=== PATIENT | female | born 2000 ===

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

== ENCOUNTER 2018-03-09 19:12 | Emergency (ER) | payer MEDICAID ==
[2018-03-09 19:39] VITALS: BMI 31.8
[2018-03-09 20:05] LABS: SQUAMOUS EPITHIAL 34 /hpf (0-5); URINE BACTERIA RARE (<OCC); URINE BILIRUBIN NEGATIVE (NEGATIVE); URINE BLOOD NEGATIVE (NEGATIVE); URINE CALCIUM OXALATE CRYSTALS MOD /hpf (<OCC); URINE CLARITY Hazy (Clear); URINE COLOR Yellow (YELLOW); URINE GLUCOSE (UA) NORMAL (Normal); URINE LEUKOCYTE ESTERASE 2+ Leu/uL (Negative); URINE PROTEIN NEGATIVE (NEGATIVE)
--- NOTE | 2018-03-09 21:00 | OBHP ---
Datetime: 03/09/2018 20:50 IP Adm Impression: , intrauterine ; Intact Membranes IP Admit Plan: Observation/Evaluation Admit Comment, IP Provider: 17 yo female G1 with an IUP at 21.6 weeks and presented with c/o of supr apubic pain with some constipation. Admits to + FM and denies LOF, VB or VD. Pt admits to deinkinf li ttle to no water PMHx and PSHx; Negative Meds PNV NKDA Social Hx Denies x 3 A/P: Young primigravida female + FHT"S and reassuring for GA. No uterine activity recorded or palpated Dysuria and constipation UA with Dehydration and + WBC's, most likely UTI Macrobid given x 1 and Rx to complte a 7 days course Advised to increase po water intake Will follow up in Clinic in 7-10 days or prn Pelvic Type - PN: Adequate Extremities - PN: Normal Abdomen - PN: Normal Back - PN: Normal Breast - PN: Not Done Lungs - PN: Normal Heart - PN: Normal Thyroid - PN: Normal Neurologic - PN: Normal HEENT - PN: Normal General - PN: Normal Presentation-Admit: Vertex FHR - Baseline A Provider: 140 Membranes, Provider: Intact Gestation - Est Wks by US: 21.6 EGA AdmitDate IP: 21.6 Vital Signs Provider: Reviewed IP Chief Complaint: Signs/symptoms UTI; Maternal discomfort Dilatation, Provider: NI Genitourinary Exam: Normal DTRs - PN: Normal
--- NOTE | 2018-03-09 21:03 | OBDCSUM ---
Datetime: 03/09/2018 20:56 Discharged to, Provider: Home Follow up at, Provider: [facility] Disch Instr Activity: Normal activity Disch Instr Diet: Regular Discharge Instructions, Provider: Routine instructions given Discharge Time: 03/09/2018 20:56 Follow up in weeks, Provider: in 7-10 days Disch Referrals: None Disch Activity Restrictions: No exercising; No sexual activity; Nothing in vagina - [place], myers vladislav [place]ill[place] Discharge Comment, Provider: 17 yo female G1 with an IUP at 21.6 weeks and presented with c/o of sup rapubic pain with some constipation. Admits to + FM and denies LOF, VB or VD. Pt admits to deinkinf l ittle to no water PMHx and PSHx; Negative Meds PNV NKDA Social Hx Denies x 3 A/P: Young primigravida female + FHT"S and reassuring for GA. No uterine activity recorded or palpated Dysuria and constipation UA with Dehydration and + WBC's, most likely UTI Macrobid given x 1 and Rx to complete a 7 days course Advised to increase po water intake and fiber in diet Will follow up in Clinic in 7-10 days or prn D/C home in Stable and Satisfactory condition Discharge Diagnosis Prov Other: at 21.6 weeks UTI Dehydration Not in labor Contraception after Delivery: Undecided
[2018-03-10 01:44] VITALS: BP 103/47; PULSE 76; RESP 20; TEMP 99.1; O2SAT 99
== END 2018-03-09 21:07 | disposition home or self-care (01) ==
LOC: C.EROB 19:12
DX: O23.42 Unspecified infection of urinary tract in pregnancy, second trimester (principal); E86.0 Dehydration; Z3A.21 21 weeks gestation of pregnancy

== ENCOUNTER 2018-05-15 10:57 | Emergency (ER) | payer MEDICAID ==
[2018-05-15 11:23] VITALS: BMI 32.1
[2018-05-15] MEDS ORDERED: Sodium Chloride 0.9% 1,000 ML IV ONE (11:37)
[2018-05-15 12:22] LABS: SQUAMOUS EPITHIAL 26 /hpf (0-5); URINE BACTERIA RARE (<OCC); URINE BILIRUBIN NEGATIVE (NEGATIVE); URINE BLOOD NEGATIVE (NEGATIVE); URINE CLARITY Hazy (Clear); URINE COLOR Yellow (YELLOW); URINE GLUCOSE (UA) NORMAL (Normal); URINE LEUKOCYTE ESTERASE 3+ Leu/uL (Negative); URINE PROTEIN NEGATIVE (NEGATIVE); URINE UROBILINOGEN NORMAL mg/dL (0.2-1.0)
--- NOTE | 2018-05-15 13:21 | OBHP ---
Datetime: 05/15/2018 11:48 IP Chief Complaint Other: nausea and vomiting IP Admit Plan Other: IV fluid resuscitation Admit Comment, IP Provider: 17 yo at 31+3 wks with N/V - primagravida - N/V - IV fluids - negative ketones - Flu swab negative - likely gastroenteritis - increase po hydration, tylenol for fever and pain, return to hospital for labor precautions - d/c home Abdomen - PN: Normal General - PN: Normal FHR - Baseline A Provider: 140 Contraction Comments Provider: irritability Vital Signs Provider: Reviewed NICHD Variability Prov Fetus A: Moderate 6-25bpm NICHD Accel Fetus A IP Provider: 15X15 FHR Category Provider Fetus A: Category I NICHD Decel Fetus A IP Provider: None Dilatation, Provider: ft Effacement, Provider: l Station, Provider: -3 Genitourinary Exam: Normal Datetime: 03/09/2018 20:50 EGA AdmitDate IP: 21.6
[2018-05-15 20:40] VITALS: BP 110/49; PULSE 87; RESP 18; TEMP 99.3; O2SAT 100
== END 2018-05-15 13:45 | disposition home or self-care (01) ==
LOC: C.EROB 10:57
DX: O21.2 Late vomiting of pregnancy (principal); Z3A.31 31 weeks gestation of pregnancy
CPT/HCPCS: 81001; 82948; 87804; 99283; J7030

== ENCOUNTER 2018-05-16 04:42 | Emergency (ER) | payer MEDICAID ==
[2018-05-16 04:42] VITALS: BMI 32.1
[2018-05-16 05:01] VITALS: O2SAT 100
--- NOTE | 2018-05-16 05:20 | C.PDOC ---
History Of Present Illness 17 year old female, 31 weeks , presents to the ED c/o exacerbation of her migraine headache for the past 2 days. Patient described her headache as frontal associated with vomiting and photophobia. Patient states she took Tylenol with no relief to her symptoms. Patient was sent from L&D for evaluation. Patient denies fever, chills, back pain, visual changes, dizziness, vaginal bleeding, vaginal discharge, hematuria, rash, weakness, numbness. Time Seen by Provider: 05/16/18 05:11 Chief Complaint (Nursing): GI Problem History Per: Patient History/Exam Limitations: no limitations Onset/Duration Of Symptoms: Days (2) Current Symptoms Are (Timing): Still Present Quality Of Discomfort: "Pain" Associated Symptoms: Nausea, Vomiting. denies: Diarrhea, Loss Of Appetite, Urinary Symptoms Alleviating Factors: None Recent travel outside of the [place]: No Additional History Per: Patient Abnormal Vaginal Bleeding: No Last Menstral Period: 10/07/17 Past Medical History Reviewed: Historical Data, Nursing Documentation, Vital Signs Vital Signs: Last Vital Signs Temp 98.1 F 05/16/18 04:52 Pulse 88 05/16/18 04:52 Resp 22 05/16/18 04:52 BP 105/69 05/16/18 04:52 Pulse Ox 100 05/16/18 04:52 - Medical History PMH: Migraine Surgical History: No Surg Hx Family History: States: Unknown Family Hx - Social History Hx Alcohol Use: No Hx Substance Use: No - Immunization History Hx Tetanus Toxoid Vaccination: No Hx Influenza Vaccination: No Hx Pneumococcal Vaccination: No Review Of Systems Constitutional: Negative for: Fever, Chills Eyes: Negative for: Vision Change Cardiovascular: Negative for: Chest Pain, Palpitations Respiratory: Negative for: Shortness of Breath Gastrointestinal: Positive for: Nausea, Vomiting. Negative for: Abdominal Pain Genitourinary: Negative for: Dysuria, Hematuria, Vaginal Discharge, Vaginal Bleeding Musculoskeletal: Negative for: Back Pain Skin: Negative for: Rash Neurological: Positive for: Headache. Negative for: Weakness, Numbness, Dizziness Physical Exam - Physical Exam Appears: Non-toxic, No Acute Distress Skin: Normal Color, Warm, Dry Head: Atraumatic, Normacephalic Eye(s): bilateral: Normal Inspection, PERRL, EOMI Oral Mucosa: Moist Neck: Normal ROM, No Midline Cervical Tenderness, Supple Chest: Symmetrical Cardiovascular: Rhythm Regular Respiratory: Normal Breath Sounds, No Wheezing Gastrointestinal/Abdominal: Soft, No Tenderness, No Guarding, No Rebound, Other (Gravid) Back: No CVA Tenderness Extremity: Normal ROM, No Tenderness, No Calf Tenderness, No Swelling Neurological/Psych: Oriented x3, Normal Speech, Normal Cognition, Normal Motor, Normal Sensation Gait: Steady ED Course And Treatment O2 Sat by Pulse Oximetry: 100 (ON RA) Pulse Ox Interpretation: Normal Progress Note: Plan: - Reglan 10 mg IV. - IV fluids. On reassessment, patient is resting comfortably, is tolerating PO, and pain has improved. Patient has no neurologic deficit, photophobia, rash, fever, or nuchal rigidity. Patient with stable vitals and was instructed to follow up with physician/clinic in 1-2 days. Pt is referred to L&D for NST Reevaluation Time: 06:10 Reassessment Condition: Improved Disposition - Disposition Referrals: [facility] [Outside] Disposition Time: 06:16 Condition: STABLE Additional Instructions: Please follow up with PMD/ FLARE MAN ( Sigue con lucas doctor en clinica) Take fluids ( Ping liquido) Ping las medicinas Regresa si peor Prescriptions: Metoclopramide [Reglan] 1 tab PO TID PRN #10 tab PRN Reason: Nausea/Vomiting Instructions: Migraine Headache (DC) Forms: [employer] (Georgian) - Clinical Impression Clinical Impression: Headache, Migraine, - PA / SHOE CLERK / Resident Statement MD/DO has reviewed & agrees with the documentation as recorded. - Scribe Statement The provider has reviewed the documentation as recorded by the Scribe Pj Sutton All medical record entries made by the Scribe were at my direction and personally dictated by me. I have reviewed the chart and agree that the record accurately reflects my personal performance of the history, physical exam, medical decision making, and the department course for this patient. I have also personally directed, reviewed, and agree with the discharge instructions and disposition.
[2018-05-16] MEDS ORDERED: Sodium Chloride 0.9% 500 ML IV ONE ×2 (05:21→05:33)
[2018-05-16 06:32] VITALS: BP 92/56; PULSE 76; RESP 18; TEMP 98
== END 2018-05-16 06:37 | disposition home or self-care (01) ==
LOC: C.ER 04:42
DX: O26.893 Other specified pregnancy related conditions, third trimester (principal); G43.909 Migraine, unspecified, not intractable, without status migrainosus; Z3A.31 31 weeks gestation of pregnancy
CPT/HCPCS: 96374; 99284; J2765; J7040

== ENCOUNTER 2018-07-11 13:50 | Emergency (ER) | payer MEDICAID, OTHER ==
[2018-07-11 15:01] VITALS: BMI 34.3
[2018-07-11 15:26] LABS: SQUAMOUS EPITHIAL 15 /hpf (0-5); URINE BILIRUBIN NEGATIVE (NEGATIVE); URINE BLOOD NEGATIVE (NEGATIVE); URINE CALCIUM OXALATE CRYSTALS OCC /hpf (<OCC); URINE CLARITY Hazy (Clear); URINE COLOR Yellow (YELLOW); URINE GLUCOSE (UA) NORMAL (Normal); URINE LEUKOCYTE ESTERASE 2+ Leu/uL (Negative); URINE PROTEIN 1+ mg/dL (NEGATIVE); URINE UROBILINOGEN NORMAL mg/dL (0.2-1.0)
--- NOTE | 2018-07-11 17:03 | US ---
Date of service: 07/11/2018 Ultrasound biophysical profile Indication: Decreased Movement Technique: Grayscale, color flow, and M-mode sonographic images of the single live intrauterine were obtained. Comparison: Pelvic ultrasound performed 06/25/17 Findings: There is a single live intrauterine gestation. The fetus is in cephalic position. The placenta is anterior. There is no evidence of previa. There is a normal amount of amniotic fluid. The MILTON measures 15.9 cm. M-mode imaging demonstrates a heart rate to be 129.2 beats per min. movements 2/2 breathing 2/2 tone 2/2 Amniotic fluid 2/2 Total score impression: 12/08 The study was performed for the emergent evaluation of decreased movement, and the whole anatomic survey of the fetus was not performed. Incidental note is made of testicular hydrocele. Impression: Biophysical profile of 8 out of 8. Single live intrauterine in cephalic position with a heart rate of 129.2 beats per min. The study was performed for the emergent evaluation of decreased movement, and the whole anatomic survey of the fetus was not performed. Incidental note is made of testicular hydrocele. Recommend follow-up consultation with Maternal specialist.
[2018-07-11 22:53] VITALS: BP 112/74; PULSE 74; RESP 18; TEMP 98.9
== END 2018-07-11 18:33 | disposition home or self-care (01) ==
LOC: C.EROB 13:50
DX: O46.93 Antepartum hemorrhage, unspecified, third trimester (principal); Z3A.39 39 weeks gestation of pregnancy

== ENCOUNTER 2018-07-14 12:25 | Inpatient (IN) | payer MEDICAID, OTHER ==
[2018-07-14 14:07] VITALS: BMI 32.5
[2018-07-14 14:46] LABS: BASO % 0.2 % (0.0-2.0); EOS % 0.5 % (0.0-4.0); LYMPH # 1.5 K/uL (1.0-4.3); MEAN CELL VOLUME 93.2 fL (81.0-99.0); MEAN CORPUSCULAR HEMOGLOBIN 30.3 pg (27.0-31.0); MEAN CORPUSCULAR HGB CONC 32.5 g/dL (33.0-37.0); MEAN PLATELET VOLUME 9.4 fL (7.2-11.7); MONO # 0.8 K/uL (0.0-0.8); MONO % 8.8 % (0.0-10.0); NEUT # 6.6 K/uL (1.8-7.0); NEUT % 73.5 % (50.0-75.0); RBC 3.97 Mil/uL (3.80-5.20); RED CELL DISTRIBUTION WIDTH 13.6 % (11.5-14.5); WHITE BLOOD COUNT 8.9 K/uL (4.8-10.8)
[2018-07-14 14:55] LABS: URINE BILIRUBIN NEGATIVE (NEGATIVE); URINE BLOOD NEGATIVE (NEGATIVE); URINE CLARITY Clear (Clear); URINE COLOR Yellow (YELLOW); URINE GLUCOSE (UA) NORMAL (Normal); URINE LEUKOCYTE ESTERASE TRACE Leu/uL (Negative); URINE PROTEIN NEGATIVE (NEGATIVE); URINE UROBILINOGEN NORMAL mg/dL (0.2-1.0)
[2018-07-14 15:00] LABS: ALB/GLOB RATIO 1.2 (1.0-2.1); ALBUMIN 3.9 g/dL (3.5-5.0); ALT/SGPT 8 U/L (9-52); AST/SGOT 23 U/L (14-36); BLOOD UREA NITROGEN 3 mg/dL (7-17); CALCIUM 9.4 mg/dl (8.6-10.4); GFR NON-AFRICAN AMERICAN > 60
[2018-07-14] MEDS ORDERED: Lactated Ringer's 1,000 ML IV ONE (15:00)
[2018-07-14] MEDS ORDERED: Fentanyl/Bupivacaine HCl 250 ML EPI ONE (15:20)
[2018-07-14] MEDS: Lactated Ringer's 1,000 ML IV SCH (15:47)
[2018-07-14] MEDS ORDERED: Oxytocin 30 UNIT in NS 500 ml 30 UNITS/500 ML BAG IV ONE ×2 (16:31→16:40)
--- NOTE | 2018-07-14 20:12 | OBADHP ---
Datetime: 07/14/2018 18:37 FHR - Baseline A Provider: 140 Amniotic Fluid Color, Provider: Clear Contraction Comments Provider: q2-3min Vital Signs Provider: Reviewed; Within Normal Limits NICHD Variability Prov Fetus A: Moderate 6-25bpm NICHD Accel Fetus A IP Provider: 15X15 FHR Category Provider Fetus A: Category I NICHD Decel Fetus A IP Provider: None Dilatation, Provider: 5 Effacement, Provider: 90 Station, Provider: -2 Datetime: 07/14/2018 13:59 Admit Comment, IP Provider: HPI: 17yo female at 40 weeks gestation presenting with contractions . Patient states contractions began two weeks ago, felt very light, and have increased in intensity o radha the past day. Pain during contactions is at an 8/10. Saw her DENTAL LABORATORY MANAGER this morning for regular visit an d was sent to [facility] for evaluation of labor. Patient reports decreased movement for the past f ew hours. She began care at 8 weeks. Patient had one UTI several months ago that was treated with antibiotics and resolved. Patient reports daily nausea/vomting since begining of pregancy. Britney ent also reports migraines that last one hour which began years before current gestation and have con tinued through her . Patient denies vaginal discharge/blood/fluid, dysuria, SOB, CP, abdominal pain, nausea, vomiting, constipation, diarrhea, dizzyness, or vision changes. Ob Provider: MOISÉS OBHx: GynHx: LMP 10/07/2017, LUL 07/14/18 by LMP. Menarche at 12yo, monthly, lasting 4 days. Never had PA P. +Chlamydia in 2017, was treated and has since resolved. Allergies: NKDA Medications: vitamins, Tylenol PMH: migraines FmHx: parents alive and well, mother 48yo, father 50yo. Social Hx: denies tobacco, etoh, drugs. Lives in basement apartment with her boyfriend who is fat her of child. Sexually active up until yesterday. P.E. As above Assessment and Plan 17yo female , IUP at 40 weeks gestation, with uncomplicated course; early labor. Dec reased movement - NST reactive/ Category 1 tracing. Vitals stable. 1) Admit 2) Start pitocin 3) Anticipate vaginal delivery Case discussed with Dr. Mynor Platt-OMS III Attending Note: patient seen evaluated and examined by me withthe Medical Student. I agree with th e above as documented. Category 1 tracing. D/W patient: augmentation of labor, epidural; and the mike te possiblity of delivery, if indicated. Patient expressed an understanding and agrees. No q uestions offered. Patient desires pain relief at this time. Plan: 1) Admit 2) NPO 3) Admission labs 4) Continuous EFM 5) Anesthesia consult - epidural 6) Start pitocin 7) Anticipate vaginal delivery Pelvic Type - PN: Not Done Extremities - PN: Normal Abdomen - PN: Normal Back - PN: Not Done Breast - PN: Not Done Lungs - PN: Normal Heart - PN: Normal Thyroid - PN: Not Done Neurologic - PN: Not Done HEENT - PN: Normal General - PN: Normal Weight - Estimated: 8lb Presentation-Admit: Vertex Membranes, Provider: Carl Waldrop, ACOG Physical Exam: Abdomen: Fundal height 40cm IP Hx Assessment: The History has been Reviewed and is Current IP Chief Complaint: Uterine contractions; Decreased movement Genitourinary Exam: Normal DTRs - PN: Not Done EGA AdmitDate IP: 40.0 IP Adm Impression: Term, intrauterine ; No Active Labor; Intact Membranes IP Admit Plan: Admit to unit; Initiate labor protocol Datetime: 07/11/2018 16:48 IP Chief Complaint Other: Headache, nausea, vomiting Pool Provider: Negative Datetime: 05/15/2018 11:48 IP Admit Plan Other: IV fluid resuscitation Datetime: 03/09/2018 20:50 Gestation - Est Wks by US: 21.6
--- NOTE | 2018-07-14 21:10 | OBPN ---
Datetime: 07/14/2018 18:37 IP Progress Impression: Normal progression of labor IP Procedures: Artificial ROM; Sterile Vag Exam IP Progress Plan: Continue present management; Augmentation; Anticipate Vaginal Delivery Amniotic Fluid Color, Provider: Clear Contraction Comments Provider: q2-3min FHR - Baseline A Provider: 140 IP Progress Note Comment: Patient seen and examined at bedside. Patient is s/p epidural and reports feeling pressure. Offers no other complaints at this time. AROM with small amount of clear fluid. VS: BP 115/76 HR 102 SVE: /-2 A/P: 17 year old at 40w0d in labor, s/p epidural and AROM -Stable, afebrile -Category I tracing -We will continue pitocin -Anticipate vaginal delivery Plan discussed with Dr Mynor Joseph DO PGY-2 Attending Note: present and participated in the cervical examiniation of this patient. I agree wit h the above as documented. Vital Signs Provider: Reviewed; Within Normal Limits NICHD Accel Fetus A IP Provider: 15X15 FHR Category Provider Fetus A: Category I NICHD Variability Prov Fetus A: Moderate 6-25bpm Dilatation, Provider: 5 Effacement, Provider: 90 Station, Provider: -2 NICHD Decel Fetus A IP Provider: None Datetime: 07/14/2018 13:59 Membranes, Provider: Intact Weight - Estimated: 8lb Presentation-Admit: Vertex Datetime: 07/11/2018 16:48 Pool Provider: Negative Datetime: 03/09/2018 20:50 Gestation - Est Wks by US: 6
--- NOTE | 2018-07-14 21:18 | OBPN ---
Datetime: 07/14/2018 21:10 IP Progress Impression Other: Protracted active phase of labor IP Procedures: Intrauterine Pressure Catheter; Sterile Vag Exam IP Progress Plan: Continue present management; Augmentation; Anesthesia consult Membranes, Provider: Ruptured Amniotic Fluid Color, Provider: Clear FHR - Baseline A Provider: 145 Gestation - Est Wks by US: 40.0 Presentation-Admit: Vertex IP Progress Note Comment: Patient c/o vaginal pressure Cervical exam: as above. IUPC inserted without incident. Pitocin = 6 MUnits/min Assessment: 17 y.o. P0, 40 weeks, protracted active phase of labor. S/P AROM, on pitocin. Category 1 tracing. Patient is clinically stable. Plan: 1) Anesthesia consult 2) Continue pitocin 3) Anticipate vaginal delivery NICHD Accel Fetus A IP Provider: 15X15 FHR Category Provider Fetus A: Category I NICHD Variability Prov Fetus A: Moderate 6-25bpm Dilatation, Provider: 5-6 Effacement, Provider: 90 Station, Provider: -2 NICHD Decel Fetus A IP Provider: None
[2018-07-15] MEDS ORDERED: cefOXitin IV 2 gm in Dextrose 2 GM/50 ML BAG IVPB ONE ×3 (04:14→21:03)
[2018-07-15] MEDS ORDERED: Sodium Citrate/Citric Acid 15 ml Sol PO ONE (04:14)
[2018-07-15] MEDS ORDERED: Sodium Bicarbonate (8.4%) 50 mEq Vial ONE (04:25)
[2018-07-15] MEDS ORDERED: Lidocaine 2% MPF (5 ml) Inj ONE ×3 (04:29→06:21)
[2018-07-15] MEDS ORDERED: Oxytocin 20 units in LR 2,000 ML IV ONE (04:34)
--- NOTE | 2018-07-15 04:48 | OBPN ---
Datetime: 07/15/2018 04:34 IP Progress Impression Other: tachycardia IP Progress Impression: Arrest of dilatation/descent; Non-reassuring heart rate IP Informed Consent Obtain: Section Delivery IP Procedures: Sterile Vag Exam IP Progress Plan: Deliver- Section Membranes, Provider: Ruptured Contraction Comments Provider: >200 [place] FHR - Baseline A Provider: 165 Gestation - Est Wks by US: 40w 1d IP Progress Note Comment: FHR noted for tachycardia Cervical exam: as above. Pitocin stopped at approx 0300 hours GENEVA Reducing Salon Attendant ID [id number] Assessment: 17 y.o. P0, 40w 1d, arrest of cervical dilattion with tachycardia for elecitve p rimary section. R/C discussed. Patient expressed an understanding and agrees. No questions o ffered. Consent forms signed, dated, witnessed and placed in chart. Patient is clinically stble. PlaN: 1) Tylenol 650 mg ND 2) Notify anesthesia 3) Notify peds 4) Abdominal prep and shave 5) Mefoxin infrastructure consultant to O.R. 6) patient infrastructure consultant to O.R. Vital Signs Provider: Reviewed Vital Signs Provider Details: T= 100.2 at 0300 hours NICHD Accel Fetus A IP Provider: 15X15 FHR Category Provider Fetus A: Category III NICHD Variability Prov Fetus A: Moderate 6-25bpm Dilatation, Provider: 8 Effacement, Provider: 90 Station, Provider: -1 NICHD Decel Fetus A IP Provider: Early Datetime: 07/15/2018 02:07 Amniotic Fluid Color, Provider: Clear
[2018-07-15] MEDS ORDERED: Oxytocin 10 Units/ml Inj ONE (04:58)
[2018-07-15] MEDS ORDERED: Midazolam 2 MG/2 ML VIAL ONE ×3 (05:29→06:30)
[2018-07-15] MEDS ORDERED: Oxycodone/Acetaminophen 5/325 mg Tab PO PRN ×2 (06:11)
[2018-07-15] MEDS ORDERED: Ketamine 50 mg/ml Inj (10 ml) ONE (06:31)
[2018-07-15] MEDS: Prenatal Multivit/Folic Acid/Iron Tab PO SCH (10:00)
[2018-07-15] MEDS: Simethicone 80 mg Chewtab PO SCH ×4 (10:00→22:09)
--- NOTE | 2018-07-15 12:21 | OBDS ---
DELIVERY PERSONNEL Delivery Doctor: Mehdi Lowe MD Scrub Nurse: JENNIFER GILLESPIE TECH Dampproofer: Carmencita Vences RN Anesthesiologist: MD Trung MATERNAL INFORMATION Delivery Anesthesia: Epidural Medications in Delivery: PITOCIN _ METHERGINE Estimated Blood Loss (ml): 800 Maternal Complications: None RN Comments: LIVE BABY BOY Provider Comments: Uncomplicated primary LTCS, delivery of live male NUBIA position, weight 7lb , 's 9/9. Cord pH Grossly normal placenta, 3 vessel cord Hemostasis assured Patient tolerated procedure well. Hemostasis assured EBL 800 mL U.O. 1,100 mL IVFs 3,000 mL, 40 units pitocin then 20 units Methergine 0.2mg IM x1 given LABOR SUMMARY EDC: 07/14/2018 00:00 No. Babies in Womb: 1 Attempted: Yes Labor Anesthesia: Epidural LABOR INFORMATION Reason for Induction: Not Applicable Onset of Labor: 07/14/2018 07:00 Oxytocin: Augmentation Group B Beta Strep: Negative Steroids Given: None Reason Steroids Not Administered: Not Applicable MEMBRANES Membranes Rupture Method: Artificial Rupture of Membranes: 07/14/2018 18:33 Length of Rupture (hrs): 10.72 Amniotic Fluid Color: Clear Amniotic Fluid Amount: Small Amniotic Fluid Odor: Normal STAGES OF LABOR Stage 3 hrs: 0 Stage 3 min: 2 Total Time in Labor hrs: 22 Total Time in Labor min: 18 VAGINAL DELIVERY Episiotomy: None Laceration Extension: N/A Laceration Type: None CSECTION DELIVERY Primary Indication: Failed Induction Secondary Indication: Secondary Arrest of Dilatation CSection Urgency: Elective CSection Incidence: Primary Labor: Labor Elective: Elective CSection Incision: Lower Uterine Transverse BABY A INFORMATION Delivery Date/Time: 07/15/2018 05:16 Method of Delivery: Born in Route : No : N/A Forceps: N/A Vacuum Extraction: N/A Shoulder Dystocia : No SHOULDER DYSTOCIA BABY A Delivery Date/Time: 07/15/2018 05:16 PRESENTATION/POSITION BABY A Presentation: Cephalic Cephalic Presentation: Vertex Vertex Position: Left Occipital Anterior (Annotations: Data stored by N on behalf of user) Breech Presentation: N/A PLACENTA INFORMATION BABY A Placenta Delivery Time : 07/15/2018 05:18 Placenta Method of Delivery: Manual Removal Placenta Status: Delivered SCORES BABY A Heart Rate 1 min: >100 bpm Resp Effort 1 min: Good Cry Reflex Irritability 1 min: Cough or Sneeze or Pulls Away Muscle Tone 1 min: Active Motion Color 1 min: Body [place], Extremities Blue Resuscitation Effort 1 min: Tactile Stimulation SCORE 1 MIN: 9 Heart Rate 5 min: >100 bpm Resp Effort 5 min: Good Cry Reflex Irritability 5 min: Cough or Sneeze or Pulls Away Muscle Tone 5 min: Active Motion Color 5 min: Body [place], Extremities Blue Resuscitation Effort 5 min: Tactile Stimulation SCORE 5 MIN: 9 INFANT INFORMATION BABY A Gestational Age at Delivery: 40.0 Gestational Status: Term Infant Outcome : Liveborn Condition : Stable Infant Sex: Male IDENTIFICATION/MEDS BABY A ID Band Number: [id number] ID Band Location: Left Leg; Left Arm Sensor Applied: Yes Sensor Number: [id number] Sensor Location : Cord Clamp Vitamin K Given : Not Given Erythromycin Given: Not Given WEIGHT/LENGTH BABY A Infant Birthweight (gms): 3190 Weight (lb): 7 Weight (oz): 0 Infant Length Inches: 20.00 Infant Length cms: 50.8 CORD INFORMATION BABY A No. Cord Vessels: 3 Nuchal Cord : N/A Infant Cord pH Baby Venous: 7.34 Cord Blood Taken: Yes Suction: Mouth; Nose ASSESSMENT BABY A Infant Complications: None Physical Findings at Delivery: Within Normal Limits Respirations: Appears Normal Coremaker Apprentice/ALS Called : No Care By: /JASVIR CALHOUN Transferred To: Remains with Mother
[2018-07-15] MEDS: cefOXitin IV 2 gm in Dextrose 2 GM/50 ML BAG IVPB SCH ×2 (13:01→21:13)
--- NOTE | 2018-07-15 15:18 | PCM.SURG1 ---
Surgeon's Initial Post Op Note - Surgeon's Notes Surgeon: Cinthia Lowe MD Direct Marketing Intern: Charly Steele MD Type of Anesthesia: Spinal Anesthesia Administered By: Kadeem Nino DO Pre-Operative Diagnosis: Teen ; 41 weeks gestation; failed induction of labor - arrest of dilatation at 8 cm. tachycardia. Operative Findings: Live male infant. NUBIA position. Weight 7lb. 's 9/9. Cord pH 7.34. Normal uterus; normal ovaries and fallopian tubes bilaterally. Post-Operative Diagnosis: Same Operation Performed: Primary LTCS Specimen/Specimens Removed: None Estimated Blood Loss: EBL {In ML}: 800 (1,100 mL; 3,000 mL LR - 1st 1L 40 units pitocin; Methergine 0.2 mg IM x 1) Blood Products Given: N/A Drains Used: No Drains Post-Op Condition: Good Date of Surgery/Procedure: 07/15/18 Time of Surgery/Procedure: 07:00
[2018-07-16] MEDS ORDERED: Bisacodyl 5mg EC Tab PO ONE (06:12)
[2018-07-16 08:17] LABS: HEMOGLOBIN 9.8 g/dL (11.0-16.0); MEAN CELL VOLUME 93.9 fL (81.0-99.0); MEAN CORPUSCULAR HEMOGLOBIN 31.2 pg (27.0-31.0); MEAN CORPUSCULAR HGB CONC 33.2 g/dL (33.0-37.0); MEAN PLATELET VOLUME 9.1 fL (7.2-11.7); RBC 3.13 Mil/uL (3.80-5.20)
[2018-07-16 08:21] LABS: WHITE BLOOD COUNT 14.6 K/uL (4.8-10.8)
[2018-07-16] MEDS: Simethicone 80 mg Chewtab PO SCH ×4 (09:24→22:18)
[2018-07-16] MEDS: Prenatal Multivit/Folic Acid/Iron Tab PO SCH (09:24)
[2018-07-16] MEDS: Lactated Ringer's 1,000 ML IV SCH (10:07)
--- NOTE | 2018-07-16 18:46 | OBPPN ---
Datetime: 07/16/2018 11:00 PP Pain Prov: Within normal limits PP Nausea Prov: Denies PP Flatus Prov: No PP BM Prov: No PP Breasts Prov: Not Done PP Heart Prov: Normal PP Lungs Prov: Normal PP Abdomen/Uterus Prov: Abnormal PP Lochia Prov: Normal PP Vulva/Perineum Prov: Normal PP CVA Tenderness Prov: Normal PP Extremities Prov: Normal PP C/S Incision Prov: Normal PP Progress Prov: Normal PP Comments Phys Exam Prov: Abdomen midly distended and tympanic Fundus firm. Incision clean, dry and intact PP Impression Other Prov: Slow PP progress, Not ambulating PP Plan Other Prov: Encourage activity and po water PP Progress Note Prov: POD # 1 S/P Primary C/S secondary to failed induction PP H_H 9.8/29.4 and asymptomatic/ A+ Breast and Bottle feeding and advised to increase po water intake and schedule Q 2 h rs States that she was told antenatally that her baby have testicular cysts? Will notify Material Clerk Eating and voiding OK Willl change pain schedule to alternate Percocet and Motrin Q 4 hours Encouraged to increase activity, ambulation, IS and po water intake Will advance diet and Post-Op care. Remove Hep Lock and Dressing May shsower Stable and Satisfactory condition and recovery
[2018-07-17] MEDS: Oxycodone/Acetaminophen 5/325 mg Tab PO SCH ×4 (07:16→20:07)
--- NOTE | 2018-07-17 08:52 | OBPPN ---
Datetime: 07/17/2018 08:40 PP Pain Prov: Within normal limits PP Nausea Prov: Denies PP Flatus Prov: Yes PP BM Prov: No PP Breasts Prov: Normal PP Heart Prov: Normal PP Lungs Prov: Normal PP Abdomen/Uterus Prov: Normal PP Lochia Prov: Normal PP Vulva/Perineum Prov: Not Done PP CVA Tenderness Prov: Normal PP Extremities Prov: Normal PP C/S Incision Prov: Normal PP Progress Prov: Normal PP Comments Phys Exam Prov: Abdomen: Obese. Soft. Non distended. (+)ABS Fundus firm, mobile, non ten nancy. Incision with hannah - clean, dry and intact. Mild lochia rubra Extremities: nocalf tenderness All other systems reviewed and are negative PP Impression Prov: Normal progression PP Plan Prov: Continue present management PP Progress Note Prov: Patient received in room 452, sitting up in chair. Breast- and bottlefeeding. Reports minimal pain - relieved with pain meds; pain scale 2/10. Ambulating and voiding without diff iculty. Denies headaches, lightheadedness, dizziness, nausea or vomiting. (+) flatus; (-) BM P.E.: as above. Obese in NAD. Awake, alert, oriented to time, person and place. Pleasant and coope rative. FOB present - H/H barbara: [birth year] -> 9.8/29.4. Rh (+) Assessment: POD#2, 17 y.o. , S/P Primary LTCS for tachycardia, arrest of cervical dilat ation at 8cm. Afebrile, vital signs stable. Returning GI and functions. Acute blood loss anemia - asymptomatic and hemodynamically stable. Patient encouraged to ambulate in the hallways. Patient is c linically stable. Plan: 1) Start iron supplementation: Fe gluconate 324 mg 1 tab po QD 2) Continue present management 3) Anticipate dischargehome 07/18/18 Vital Signs Provider PP: Reviewed; Within Normal Limits
[2018-07-17] MEDS: Prenatal Multivit/Folic Acid/Iron Tab PO SCH (11:00)
[2018-07-17] MEDS: Simethicone 80 mg Chewtab PO SCH ×4 (11:00→22:56)
[2018-07-17 16:03] VITALS: RESP 18
[2018-07-18] MEDS: Oxycodone/Acetaminophen 5/325 mg Tab PO SCH ×2 (02:45→10:16)
[2018-07-18] MEDS: Prenatal Multivit/Folic Acid/Iron Tab PO SCH (10:10)
[2018-07-18] MEDS: Simethicone 80 mg Chewtab PO SCH (10:11)
[2018-07-18 19:10] VITALS: BP 115/65; PULSE 88; TEMP 97.8; O2SAT 98
== END 2018-07-18 14:45 | disposition home or self-care (01) | DRG 370 ==
LOC: C.EROB 12:25 → C.4D 14:00 → C.4M 07-15 16:20
PROVIDERS: ADMIT Obstetrics & Gynecology; ATTEND Obstetrics & Gynecology
PROC: 10D00Z1 Extraction of Products of Conception, Low, Open Approach (ICD-10-PCS; principal; 2018-07-15)
DX: O76 Abnormality in fetal heart rate and rhythm complicating labor and delivery (principal); D62 Acute posthemorrhagic anemia; O99.02 Anemia complicating childbirth; O62.1 Secondary uterine inertia; O62.0 Primary inadequate contractions; O48.0 Post-term pregnancy; O36.8130 Decreased fetal movements, third trimester, not applicable or unspecified; Z3A.41 41 weeks gestation of pregnancy; Z37.0 Single live birth; O99.214 Obesity complicating childbirth